=== PATIENT | male | born 1955 | race African-American/Black ===

== ENCOUNTER 2019-09-03 21:23 | Inpatient (IN) | payer MEDICARE, OTHER ==
[~2019-09-03] VITALS: Ht 182.9 cm; Wt 61.2 kg
[2019-09-03] MEDS ORDERED: SODIUM CHLORIDE 0.9% 1,000 ML IV ONE (21:36)
[2019-09-03] MEDS ORDERED: ONDANSETRON HCL 4MG/2ML INJ IV ONE (22:15)
[2019-09-03 23:11] LABS: CHLORIDE 114 mEq/L (98-107)
[2019-09-03 23:12] LABS: INR 1.1; PARTIAL THROMBOPLASTIN TIME 25.7 sec (23.4-31.0); PROTHROMBIN TIME 11.8 sec (9.6-11.0)
[2019-09-03 23:17] LABS: ETHANOL BLOOD < 10 mg/dL
[2019-09-03 23:20] LABS: CREATINE KINASE 315 IU/L (39-308)
[2019-09-03 23:21] LABS: CARBAMAZEPINE < 0.5 ug/mL (4-12)
[2019-09-03 23:25] LABS: PHENOBARBITAL < 2.1 ug/mL (15.0-40.0); VALPROIC ACID < 3.0 ug/mL (50-100)
[2019-09-03] MEDS ORDERED: CLONIDINE 0.1MG TABLET PO ONE (23:45)
[2019-09-03] MEDS ORDERED: LEVETIRACETAM 1000MG/100ML 100 ML IV ONE (23:45)
[2019-09-03 23:54] LABS: BASOPHILS % 1.1 % (0.0-2.0); EOSINOPHILS % 0.9 % (0.0-5.0); HEMATOCRIT. 49.3 % (42.0-52.0); HEMOGLOBIN. 16.3 g/dL (14.0-18.0); LYMPHOCYTES % 17.3 % (20.0-50.0); MEAN CORPUSCULAR HEMOGLOBIN 31.2 pg (28.0-32.0); MEAN CORPUSCULAR VOLUME 94.6 fL (80.0-94.0); MONOCYTES % 9.5 % (2.0-8.0); NEUTROPHILS % 71.2 % (40.0-76.0); PLATELET 125 x1000/uL (130-400); RED BLOOD CELL COUNT 5.22 mill/uL (4.7-6.1)
[2019-09-04 00:35] LABS: *AMPHETAMINES SCREEN URINE NEGATIVE (NEGATIVE); *BARBITURATES SCREEN URINE NEGATIVE (NEGATIVE); *BENZODIAZEPINES SCREEN URINE NEGATIVE (NEGATIVE); *COCAINE SCREEN URINE PRESUMTIVE POSITIVE (NEGATIVE); CANNABINOID URINE SCREEN NEGATIVE (NEGATIVE); METHADONE URINE SCREEN NEGATIVE (NEGATIVE); PHENCYCLIDINE URINE SCREEN PRESUMTIVE POSITIVE (NEGATIVE)
[2019-09-04 00:36] LABS: OPIATES URINE SCREEN NEGATIVE (NEGATIVE)
[2019-09-04] MEDS: IPRATROPIUM/ALBUTEROL 0.5-3(2.5)MG/3ML NEB HHN SCH (08:05)
[2019-09-04] MEDS ORDERED: IPRATROPIUM/ALBUTEROL 0.5-3(2.5)MG/3ML NEB HHN PRN (12:30)
[2019-09-04] MEDS ORDERED: ACETAMINOPHEN 325MG TABLET PO PRN (12:30)
[2019-09-04] MEDS ORDERED: LORAZEPAM 2MG/ML CPJ IV PRN (12:30)
[2019-09-04] MEDS ORDERED: ONDANSETRON HCL 4MG/2ML INJ IV PRN (12:30)
[2019-09-04] MEDS ORDERED: CLONIDINE 0.1MG TABLET PO PRN (12:30)
[2019-09-04] MEDS ORDERED: ASPIRIN 81MG EC TABLET PO NR (12:45)
[2019-09-04 13:10] VITALS: BP 125/84
[2019-09-04 13:27] LABS: CLARITY URINE CLEAR (CLEAR); COLOR URINE YELLOW (YELLOW); KETONES URINE 1+ (NEGATIVE); LEUKOCYTE ESTERASE URINE NEGATIVE (NEGATIVE); NITRITE URINE NEGATIVE (NEGATIVE); OCCULT BLOOD URINE TRACE (NEGATIVE); PH URINE 5.5 (4.5-8.0); PROTEIN URINE NEGATIVE (NEGATIVE); SPECIFIC GRAVITY URINE 1.021 (1.005-1.030)
[2019-09-04 16:00] VITALS: BP 120/76
[2019-09-04] MEDS: ENOXAPARIN 40MG/0.4ML SYR SUBCUT SCH (16:40)
[2019-09-04] MEDS: DEXT 5%/0.45% NACL KCL 20MEQ/L 1,000 ML IV SCH (18:14)
[2019-09-04 20:00] VITALS: BP 137/87
[2019-09-04] MEDS: FAMOTIDINE 40MG TABLET PO SCH (20:40)
[2019-09-04 20:53] LABS: BASOPHILS % 0.9 % (0.0-2.0); EOSINOPHILS % 2.4 % (0.0-5.0); HEMATOCRIT. 49.1 % (42.0-52.0); HEMOGLOBIN. 16.2 g/dL (14.0-18.0); LYMPHOCYTES % 23.1 % (20.0-50.0); MEAN CORPUSCULAR HEMOGLOBIN 31.6 pg (28.0-32.0); MEAN CORPUSCULAR VOLUME 95.6 fL (80.0-94.0); MEAN PLATELET VOLUME 11.5 fl (7.4-10.4); MONOCYTES % 6.1 % (2.0-8.0); NEUTROPHILS % 67.5 % (40.0-76.0); PLATELET 111 x1000/uL (130-400); RED BLOOD CELL COUNT 5.14 mill/uL (4.7-6.1); RED CELL DISTRIBUTION WIDTH 14.1 % (11.6-14.6)
[2019-09-04 21:02] LABS: CHLORIDE 113 mEq/L (98-107)
[2019-09-04 21:11] LABS: CREATINE KINASE MB FRACTION 2.3 ng/mL (0.5-3.6)
[2019-09-05] VITALS: BP 126/87
[2019-09-05] MEDS: DEXT 5%/0.45% NACL KCL 20MEQ/L 1,000 ML IV SCH ×2 (03:55→19:12)
[2019-09-05 04:00] VITALS: BP 91/69
[2019-09-05 08:20] LABS: HEMATOCRIT. 42.9 % (42.0-52.0); HEMOGLOBIN. 14.5 g/dL (14.0-18.0); LYMPHOCYTES % 26.1 % (20.0-50.0); MEAN CORPUSCULAR HEMOGLOBIN 31.9 pg (28.0-32.0); MEAN CORPUSCULAR VOLUME 94.3 fL (80.0-94.0); MEAN PLATELET VOLUME 10.9 fl (7.4-10.4); MONOCYTES % 6.4 % (2.0-8.0); NEUTROPHILS % 63.5 % (40.0-76.0); PLATELET 119 x1000/uL (130-400); RED BLOOD CELL COUNT 4.55 mill/uL (4.7-6.1); RED CELL DISTRIBUTION WIDTH 13.9 % (11.6-14.6)
[2019-09-05 08:30] VITALS: BP 120/82
[2019-09-05] MEDS ORDERED: POTASSIUM CHLORIDE 20MEQ TABLET SR PO NR (08:45)
[2019-09-05] MEDS ORDERED: MAGNESIUM 2 G PREMIX 50 ML IV ONE (08:45)
[2019-09-05 08:54] LABS: CHLORIDE 114 mEq/L (98-107)
[2019-09-05] MEDS ORDERED: DOCUSATE SODIUM 100MG CAPSULE PO SCH (09:00)
[2019-09-05] MEDS: ASPIRIN 81MG EC TABLET PO SCH (09:06)
[2019-09-05] MEDS: ENOXAPARIN 40MG/0.4ML SYR SUBCUT SCH (09:07)
[2019-09-05] MEDS: FAMOTIDINE 40MG TABLET PO SCH ×2 (09:07→21:24)
[2019-09-05] MEDS: DOCUSATE SODIUM 250MG CAPSULE PO SCH (09:07)
[2019-09-05 09:13] LABS: CREATINE KINASE MB FRACTION 1.4 ng/mL (0.5-3.6)
[2019-09-05 12:00] VITALS: BP 128/89
[2019-09-05] MEDS: IPRATROPIUM/ALBUTEROL 0.5-3(2.5)MG/3ML NEB HHN SCH ×3 (12:22→21:12)
[2019-09-05 12:23] LABS: BG BASE EXCESS -1.6 mmol/L (-2.0-2.0); BG CARBOXYHEMOGLOBIN 0.4 % (0.5-1.5); BG FRACTION INSPIRED OXYGEN 21; BG HCO3 ACT 22.9 mmol/L (22.0-26.0); BG METHEMOGLOBIN 0.2 % (0.0-1.5); BG OXYHEMOGLOBIN 96.4 % (94.0-97.0); BG PCO2 38.5 mmHg (35.0-45.0); BG PH 7.393 (7.350-7.450); BG PO2 93.1 mmHg (75.0-100.0); BG SAMPLE SITE RIGHT RADIAL; BG TOTAL HEMOGLOBIN 14.7 g/dL (12.0-18.0); BG VENT MODE ROOM AIR
[2019-09-05 16:00] VITALS: BP 121/77
[2019-09-05 20:00] VITALS: BP 118/72
[2019-09-06] VITALS: BP 116/68
[2019-09-06 04:00] VITALS: BP 124/81
[2019-09-06] MEDS: DEXT 5%/0.45% NACL KCL 20MEQ/L 1,000 ML IV SCH ×2 (04:45→12:41)
[2019-09-06] MEDS: IPRATROPIUM/ALBUTEROL 0.5-3(2.5)MG/3ML NEB HHN SCH ×4 (05:33→16:21)
[2019-09-06 06:03] LABS: BASOPHILS % 0.8 % (0.0-2.0); EOSINOPHILS % 2.5 % (0.0-5.0); HEMATOCRIT. 43.3 % (42.0-52.0); HEMOGLOBIN. 14.5 g/dL (14.0-18.0); LYMPHOCYTES % 20.6 % (20.0-50.0); MEAN CORPUSCULAR HEMOGLOBIN 31.4 pg (28.0-32.0); MEAN CORPUSCULAR VOLUME 93.8 fL (80.0-94.0); MONOCYTES % 6.6 % (2.0-8.0); NEUTROPHILS % 69.5 % (40.0-76.0); PLATELET 114 x1000/uL (130-400); RED BLOOD CELL COUNT 4.62 mill/uL (4.7-6.1); RED CELL DISTRIBUTION WIDTH 13.6 % (11.6-14.6)
[2019-09-06 06:43] LABS: CHLORIDE 111 mEq/L (98-107)
[2019-09-06 08:00] VITALS: BP 125/89
[2019-09-06] MEDS: DOCUSATE SODIUM 250MG CAPSULE PO SCH (08:58)
[2019-09-06] MEDS: ASPIRIN 81MG EC TABLET PO SCH (08:58)
[2019-09-06] MEDS: ENOXAPARIN 40MG/0.4ML SYR SUBCUT SCH (08:58)
[2019-09-06] MEDS: FAMOTIDINE 40MG TABLET PO SCH (08:58)
[2019-09-06] MEDS ORDERED: FAMO-135 MT (09:05)
[2019-09-06] MEDS ORDERED: CRES10 MT (09:05)
[2019-09-06] MEDS ORDERED: FLUT1AER INH (09:05)
[2019-09-06] MEDS ORDERED: FLUTICASONE/VILANTEROL 200-25 BLST.W.DEV ORI SCH (11:00)
[2019-09-06 12:00] VITALS: BP 133/86
[2019-09-06 16:00] VITALS: BP 116/68
[2019-09-06 16:08] VITALS: BP 116/68
[2019-09-06] MEDS ORDERED: ATORVASTATIN CALCIUM 20MG TABLET PO SCH (21:00)
== END 2019-09-06 17:50 | disposition home or self-care (01) | DRG 918 ==
LOC: ER 21:23 → 5WST 23:53 → ENRESERV 09-04 12:06
PROVIDERS: ADMIT Internal Medicine Geriatric Medicine; ATTEND Internal Medicine Geriatric Medicine
DX: T40.5X1A Poisoning by cocaine, accidental (unintentional), initial encounter (principal); I50.22 Chronic systolic (congestive) heart failure; I42.9 Cardiomyopathy, unspecified; G40.89 Other seizures; T40.991A Poisoning by other psychodysleptics [hallucinogens], accidental (unintentional), initial encounter; I11.0 Hypertensive heart disease with heart failure; I49.3 Ventricular premature depolarization; F17.210 Nicotine dependence, cigarettes, uncomplicated; I27.20 Pulmonary hypertension, unspecified; J44.9 Chronic obstructive pulmonary disease, unspecified; E16.2 Hypoglycemia, unspecified; E80.6 Other disorders of bilirubin metabolism; E87.6 Hypokalemia; R73.9 Hyperglycemia, unspecified; I49.9 Cardiac arrhythmia, unspecified; Y92.89 Other specified places as the place of occurrence of the external cause; Z86.73 Personal history of transient ischemic attack (TIA), and cerebral infarction without residual deficits; I16.0 Hypertensive urgency
CPT/HCPCS: 36415; 36600; 71045; 80048; 80053; 80156; 80165; 80184; 80185; 80305; 80320; 81003; 82140; 82375; 82550; 82553; 82805; 82962; 83605; 83735; 83880; 84443; 84484; 85025; 93005; 93306; 93970; 94640; 97162; 99285; J1650; J1953; J2405; J7030; J7620; G0480